=== PATIENT | female | born 1950 | race Caucasian/White ===

== ENCOUNTER 2023-11-07 12:25 | Day surgery (SDC) | payer MEDICARE, OTHER, SELFPAY ==
[2023-11-07] MEDS: FLEETS ENEMA 1 EACH PR (13:04)
[2023-11-07 13:12] VITALS: BP 156/86; PULSE 110; RESP 16; TEMP 36.8; O2SAT 97
[2023-11-07] MEDS: LACTATED RINGERS 1,000 ML 42 ML IV (13:22)
--- NOTE | 2023-11-07 13:24 | P.HP_ITS ---
History of Present Illness History of Present Illness Date Patient Seen: 11/07/23 Time Patient Seen: 13:24 Chief complaint: Colonoscopy Narrative: 72-year-old woman here for screening colonoscopy. Personal history of colonic polyps. Last colonoscopy 2017. Rarely she experiences left lower quadrant discomfort otherwise no abdominal concerns. No family history of intestinal malignancy. [facility] Medical History History of degenerative disc disease History of osteoporosis History of asthma Surgical History History of carpal tunnel repair Social History Smoking Status: Unknown if ever smoked Meds Home Medications and Allergies Home Medications Medication Instructions Recorded Confirmed Type sodium,potassium,mag sulfates 17.5 See Rx Instructions PO .COMPLEX 09/06/23 Rx gram-3.13 gram-1.6 gram oral soln #354 mL (Suprep Bowel Prep Kit) albuterol 90 mcg/actuation aerosol inhalation 11/07/23 History inhaler alendronate 70 mg tablet 70 mg PO WEEKLY 11/07/23 11/07/23 History ascorbic acid (vitamin C) 500 mg 500 mg PO DAILY 11/07/23 11/07/23 History capsule,extended release (Vitamin C) calcium carbonate 600 mg calcium 1,200 mg PO DAILY 11/07/23 11/07/23 History (1,500 mg) tablet (Calcium) cholecalciferol (vitamin D3) 125 125 mcg PO DAILY 11/07/23 11/07/23 History mcg (5,000 unit) tablet (Vitamin D3) cyclobenzaprine 10 mg tablet 10 mg PO TID PRN Muscle Spasm 11/07/23 11/07/23 History desonide 0.05 % topical cream 1 applic topical DAILY 11/07/23 11/07/23 History fluticasone 250 mcg-salmeterol 50 1 ea inhalation DAILY 11/07/23 11/07/23 History mcg/dose blistr powdr for inhalation hydrocodone 5 mg-acetaminophen 325 1 tab PO Q6H PRN Pain, Moderate 11/07/23 11/07/23 History mg tablet ibuprofen 600 mg tablet 600 mg PO Q8H PRN Pain, Moderate 02/06/24 02/06/24 History montelukast 10 mg tablet 10 mg PO DAILY 11/07/23 11/07/23 History Allergies Allergy/AdvReac Type Severity Reaction Status Date / Time Penicillins Allergy Rash Verified 11/07/23 12:50 Exam Vital Signs (past 8 hours): - 11/07/23 13:12 Temperature 98.2 F Pulse Rate 110 H Respiratory Rate 16 Blood Pressure 156/86 H Pulse Oximetry 97 Oxygen Delivery Method Room Air Oxygen Delivery Method Room Air Narrative Exam Narrative: General adult woman alert oriented no acute distress Chest nonlabored respiration Extremities warm well perfused Assessment & Plan Assessment & Plan narrative: The patient requires colorectal screening and colonoscopy is recommended. Technical details were discussed. Risks, benefits, alternatives explained. Risks including but not limited to myocardial infarction, aspiration, bleeding, pain, missed lesion, incomplete examination, need for further radiographic studies, colonic perforation, and need for major abdominal surgery were discussed. All questions were answered to their satisfaction, and they are in agreement with this plan.
[2023-11-07 13:47] VITALS: BP 119/64; PULSE 89; RESP 22; TEMP 36.9; O2SAT 98
--- NOTE | 2023-11-07 13:53 | P.OP.COLON_ITS ---
Operative Date/Time/Diagnoses Date of procedure: 11/07/23 Time of procedure: 13:53 Pre-op diagnosis: Personal history of colonic polyps Procedure & Clinicians Study performed: Colonoscopy Same procedure as scheduled: Yes Indications: Colorectal screening Surgeon: Bryce Motta Procedure Notes Procedure in detail: The history and physical was performed/updated and the patient is ASA class is 2. The procedure was discussed in detail with the patient. Potential risks complications including infection, bleeding, missed diagnosis, perforation, need for surgery, and were explained. Their questions were answered and informed consent was obtained. Patient was brought to the procedure room and placed standard monitoring equipment. The patient's vital signs were monitored continuously throughout the entire procedure. Prior to starting time-out was performed. The patient was placed in the left lateral recumbent position. Procedural sedation was administered by anesthesia. Examination began with a thorough inspection of the perianal area there was no evidence of fissures, fistulae, external hemorrhoids or cutaneous malignancy. The colonoscopy scope was then placed into the anal canal and was advanced to the cecum, which was identified by the ileocecal valve, the appendiceal orifice and the confluence of the taenia. The scope was then slowly withdrawn examining colon thoroughly in all directions, irrigating it of any residual stool. The scope was retroflexed within the rectum The patient tolerated the procedure well. They will be discharged once criteria are met. The prep was of good/excellent quality. The withdrawl time was 10 minutes. FINDINGS * Unremarkable colonoscopy. Normal healthy tissue, without masses polyps. * Internal hemorrhoids Specimen(s): none sent Impression: Normal colonoscopy Post-procedure Recommendations: Colonoscopy in 10 years
[2023-11-07 13:54] VITALS: BP 102/58; PULSE 92; RESP 24; O2SAT 96
[2023-11-07 13:59] VITALS: BP 107/60; PULSE 94; RESP 18; TEMP 36.7; O2SAT 99
[2023-11-07 14:03] VITALS: BP 112/66; PULSE 90; RESP 16; O2SAT 98
== END 2023-11-07 14:33 | disposition home or self-care (01) ==
PROVIDERS: Referring Provider Surgery; Visit Provider Surgery
PROC: 0DJD8ZZ Inspection of Lower Intestinal Tract, Via Natural or Artificial Opening Endoscopic (ICD-10-PCS; CPT 45378; principal; 2023-11-07 13:15)
DX: Z12.11 Encounter for screening for malignant neoplasm of colon (principal); K64.8 Other hemorrhoids; Z86.010 Personal history of colon polyps
CPT/HCPCS: G0105; J2250; J2704